=== PATIENT | female | born 1975 | race Caucasian/White ===

== ENCOUNTER → 2022-10-01 08:06 | Outpatient (CLI) | payer OTHER, SELFPAY ==
--- NOTE | ~2022-10-01 | MM_ITS ---
EXAMINATION: MM screening [facility] BI w kumar HISTORY: Screening mammogram TECHNIQUE: Craniocaudal and mediolateral oblique 3-D tomosynthesis images were obtained and synthetic 2-D images were generated. CAD analysis was submitted and interpreted. COMPARISON: No prior mammogram is available for comparison at this institution. BREAST PARENCHYMAL COMPOSITION: There are scattered areas of fibroglandular density. FINDINGS: Approximately 3.7 x 6 mm circumscribed opacity is noted at mid to posterior depth in the lo wer inner left breast (craniocaudal Tomosynthesis image 25/81). There is suggestion of a radiolucent hilus. This may be a benign appearing intramammary lymph node. Diagnostic left mammogram and left blessing ast ultrasound examination are recommended for further evaluation. Otherwise there is no evidence of suspicious mass, calcification, or architectural distortion to sugg est malignancy in either breast. IMPRESSION: 1. 3.7 x 6 mm circumscribed opacity at mid to posterior depth in the lower inner left breast 2. Diagnostic left mammogram and left breast ultrasound examination are recommended BI-RADS Category 0: Incomplete: Needs additional imaging evaluation. Reviewed, dictated and finalized at location A. ING INSPECTOR IMPRESSION: 1. 3.7 x 6 mm circumscribed opacity at mid to posterior depth in the lower inne r left breast 2. Diagnostic left mammogram and left breast ultrasound examination are recomme nded BI-RADS Category 0: Incomplete: Needs additional imaging evaluation.
== END ==
DX: Z12.31 Encounter for screening mammogram for malignant neoplasm of breast (principal); R92.8 Other abnormal and inconclusive findings on diagnostic imaging of breast
CPT/HCPCS: 77063; 77067

== ENCOUNTER 2022-10-31 14:20 | Outpatient (CLI) | payer OTHER, SELFPAY ==
--- NOTE | ~2022-10-31 | MMUS_ITS ---
EXAMINATION: MM diagnostic jane LT w kumar, US breast LT limited HISTORY: Follow-up left breast asymmetry TECHNIQUE: Additional 3-D tomosynthesis images of the left breast were performed and synthetic 2-D im ages were generated. CAD analysis was submitted and interpreted. High resolution Limited left breast ultrasound was performed. COMPARISON: 10/01/2022 and 09/17/2019 BREAST PARENCHYMAL COMPOSITION: Breast composed of scattered areas of fibroglandular density FINDINGS: MAMMOGRAPHIC FINDINGS: There are no suspicious masses, calcifications or architectural distortion in the left breast to sugg est malignancy. ULTRASOUND: Limited left breast ultrasound: At 10:00, 4 cm from the nipple there is an oval hypoechoic mass with low level internal echoes, parallel orientation, no significant posterior features. This mass measure s 5 x 3 x 2 mm, likely benign. At 12:00, 4 cm from the nipple there is an oval circumscribed parallel orientation hypoechoic mass without posterior features or internal vascularity measuring 9 x 6 x 2 m m, likely benign. IMPRESSION: 1. Probable benign left breast masses by ultrasound. 2. Recommend 6 month follow-up Limited left breast ultrasound BI-RADS category 3, probably benign findings. Reviewed, dictated and finalized at location B. ING MACHINE OPERATOR IMPRESSION: 1. Probable benign left breast masses by ultrasound. 2. Recommend 6 month follow-up Limited left breast ultrasound BI-RADS category 3, probably benign findings.
== END 2022-10-31 14:21 ==
LOC: MICIMG 14:22
DX: R92.8 Other abnormal and inconclusive findings on diagnostic imaging of breast (principal)
CPT/HCPCS: 76642; 77061; 77065; G0279

== ENCOUNTER 2024-06-05 16:56 | Outpatient (CLI) | payer OTHER, SELFPAY ==
--- NOTE | ~2024-06-05 | MM_ITS ---
EXAMINATION: MM screening jane BI w kumar HISTORY: Screening TECHNIQUE: Craniocaudal and mediolateral oblique 3-D tomosynthesis images were obtained and synthetic 2-D images were generated. CAD analysis was submitted and interpreted. COMPARISON: Comparison to multiple prior studies sequentially, with oldest reviewed study dated 08/21. BREAST PARENCHYMAL COMPOSITION: Not dense: There are scattered areas of fibroglandular density. FINDINGS: There is no evidence of suspicious mass, calcification, or architectural distortion to sugg est malignancy in either breast. There has been no suspicious interval change. IMPRESSION: 1. No mammographic evidence of malignancy. 2. Recommend routine screening mammography in one year. BI-RADS Category 1: Negative Reviewed, dictated and finalized at location B.
== END 2024-06-05 16:57 | disposition home or self-care (01) ==
LOC: ANHIMG 16:58
DX: Z12.31 Encounter for screening mammogram for malignant neoplasm of breast (principal)
CPT/HCPCS: 77063; 77067

== ENCOUNTER 2025-07-22 14:20 | Outpatient (CLI) | payer OTHER, SELFPAY ==
--- NOTE | ~2025-07-22 | MM_ITS ---
EXAMINATION: MM screening [facility] BI w kumar HISTORY: Screening TECHNIQUE: Craniocaudal and mediolateral oblique 3-D tomosynthesis images were obtained and synthetic 2-D images were generated. CAD analysis was submitted and interpreted. COMPARISON: Mammograms from 06/05/2024 and 10/01/2022 BREAST PARENCHYMAL COMPOSITION: There are scattered areas of fibroglandular density. FINDINGS: There is no evidence of suspicious mass, calcification, or architectural distortion in either breast to suggest malignancy. There has been no significant interval change. IMPRESSION: 1. No mammographic evidence of malignancy. Recommend routine screening mammography in one year. BI-RADS Category 1: Negative Reviewed, dictated and finalized at location Q. IMPRESSION: 1. No mammographic evidence of malignancy. Recommend routine screening mammogra phy in one year. BI-RADS Category 1: Negative
--- OUTSIDE RECORDS SUMMARY | 2025-07-22 14:34 | XMS_ITS | Clinical Summary ---
Author Organization [facility] Address [address] [place] [id number] Care Team Providers Care Jacquard Loom Carpet Weaver Name Role Phone Unavailable Primary Care Provider Unavailabl e Social History Tobacco Use Types Packs/Day Years Used Date Smoking Tobacco: Never Assessed Comments Unknown Sex and Gender Information Value Date Recorded Sex Assigned at Not on file Legal Sex Female 8:37 AM CDT Gender Identity Not on file Sexual Orientation Not on file Plan of Treatment Health Maintenance Due Date Last Done Comments Hepatitis C Virus (HCV) Screening 1975 TdaP Immunization 1975 Hepatitis B Immunization (1 of 3 - 19+ 3-dose series) 01/26/1995 Pap Smear 01/26/1997 Cervical Cancer Screening (CCS) 01/26/2006 HPV/Cotest 01/26/2006 Cologuard 01/26/2021 Colonoscopy 01/26/2021 Colorectal Cancer Screening 01/26/2021 Immunochemical Fecal Occult Blood 01/26/2021 Influenza Immunization (#1) 2025 09/0 06/2020, 08/22/2016, 08/06/2014, Additional history exists SARS-COV-2 Immunization ( season) 2025 11/30/2020, 11/09/2020 Respiratory Syncytial Virus (RSV) Immunization (Adult) (1 - 1-dose 75+ series) 01/26/2051 Pneumococcal Immunization Combined Aged Out 07/04/2014 No longer eligible based on patient's age to complete this topic Human Papillomavirus (HPV) Immunization Aged Out No longer eligible based on patient's age to complete this topic Meningococcal Immunization (ACWY) Aged Out No longer eligible based on patient's age to complete this topic Rotavirus Immunization Aged Out No lo nger eligible based on patient's age to complete this topic
--- OUTSIDE RECORDS SUMMARY | 2025-07-22 14:34 | XMS_ITS | Clinical Summary ---
Author Organization [facility] [address] [employer] Address [address] [place] [address] Care Team Providers Care Tinner Helper Name Role Phone Jyotsna Ho MD Primary Care Provider Jyotsna Ho MD Unavailable [phone] Allergies Active Allergy Reactions Criticality Noted Date Comments Promethazine Hallucinations Medium 01/28/2022 Metoclopramide Hallucinations Medium 01/31/2020 Scopolamine Hallucinations Medium 01/28/2022 Medications montelukast (Singulair) 10 mg tablet 10 mg daily Active adalimumab (adalimumab) 40 mg/0.8 mL pen injector kit Inject 40 mg under the skin every 2 (two) weeks Active cholecalciferol (VITAMIN D-3) 2000 unit tablet Take 2,000 Units by mouth daily Active levothyroxine (SYNTHROID) 125 mcg tablet Take 125 mcg by mouth 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 9 Active omeprazole (PriLOSEC) 20 mg capsule TAKE 1 CAPSULE DAILY 9 Active traMADoL (ULTRAM) 50 mg tablet TK 1 T PO BID PRN P 8 Active ondansetron (ZOFRAN) 4 mg tablet Take 1 tablet (4 mg total) by mouth every 4 (four) hours as needed for nausea or vomiting 20 tablet 2 Active Active Problems Problem Noted Date Diagnosed Date Globus sensation 01/31/2020 Sore throat 01/30/2020 Surgical History Surgery Date Site/Laterality Comments THYROID SURGERY Medical History Medical History Date Comments Allergic rhinitis Rheumatoid arthritis (HCC) GERD (gastroesophageal reflux disease) Family History Medical History Relation Name Comments Hypertension Brother Heart disease Maternal Grandfather Hypertension Mother Relation Name Status Comments Brother Maternal Grandfather Mother Social History Tobacco Use Types Packs/Day Years Used Date Smoking Tobacco: Never Smokeless Tobacco: Never Alcohol Use Standard Drinks/Week Comments Yes 0 (1 standard drink = 0.6 oz pur e alcohol) socially Personal Safety Answer Date Recorded Getting School Help Needed Not on file 01/20 Comments No Sex and Gender Information Value Date Recorded Sex Assigned at Not on file Legal Sex Female 8:33 PM BLIND ESCORT Gender Identity Not on file Sexual Orientation Not on file Obstetrics History Last Filed Vital Signs Vital Sign Reading Time Taken Comments Blood Pressure 131/77 01/28/2022 11:17 AM BLIND ESCORT Pulse 97 01/28/2022 11:17 AM BLIND ESCORT Temperature 36.8 C (98.3 F) 01/28/2022 8:42 AM BLIND ESCORT Respiratory Rate 16 01/28/2022 11:17 AM BLIND ESCORT Oxygen Saturation 98% 01/28/2022 11:17 AM BLIND ESCORT Inhaled Oxygen Concentration - - Weight 99.8 kg (220 lb) 01/28/2022 8:42 AM BLIND ESCORT Height 157.5 cm (5' 2) 01/28/2022 8:42 AM BLIND ESCORT Body Mass Index 40.24 01/28/2022 8:42 AM BLIND ESCORT Plan of Treatment Health Maintenance Due Date Last Done Comments Cervical Cancer Screening 1975 Colon Cancer Screening-Colonoscopy 1976 Depression Screening 1976 DTaP/Tdap/Td Vaccine (1 - Tdap) 01/26/1987 Hepatitis B Screening 01/26/1994 Regular Well Visit/Exam 18-64 01/26/1994 Zoster Vaccine (1 of 2) 01/26/1995 Pneumococcal vaccine <65 (2 of 2 - PCV) 07/04/2015 07/04/2014 Breast Cancer Screening-Mammogram 03/11/2016 015 Covid-19 Vaccine (4 - 2023-2 5 season) 2024 09/01/2021, 11/30/2020, 11/09/2020 Influenza Vaccine (#1) 2025 , 07/28/2020, 09/20/2019, Additional history exists Hepatitis C Screening Completed 02/15/2021 Procedures Procedure Name Priority Date/Time Associated Diagnosis Comments HEPATITIS PANEL, ACUTE Routine 02/15/2021 4:13 AM CDT DIAGNOSTIC MAMMOGRAM BILATERAL W RAN Routine 03/11/2015 2:10 PM CDT from Last 3 Months or Most Recently Relevant to Health Maintenance Results * Hepatitis panel, acute (02/15/2021 4:13 AM CDT) HepBsAg NONREACT NONREACTIVE [facility] Comment: Siemens CentaurXP using TAMMY (chemiluminescent immunoassay) technology. NONREACTIVE: IgM antibodies to Hepatitis B Surface antigen not detected. REACTIVE: IgM antibodies to Hepatitis B Surface antigen detected. Reactive results will be confirmed by neutralization testing. HBsAb qn <3.10 mIU/mL [facility] Comment: Siemens CentaurXP using TAMMY (chemiluminescent immunoassay) technology. 9.99 IU/L or less.....NONREACTIVE: IgM antibodies to Hepatitis B Surface antibody are not detected. 10.00 IU/L or greater..REACTIVE: IgM antibodies to Hepatitis B Surface antibody are detected. Hep B core IgM NONREACT NONREACTIVE [facility] Comment: Siemens CentaurXP using TAMMY (chemiluminescent immunoassay) technology. NONREACTIVE: IgM antibodies to Hepatitis B Core antigen not detected. EQUIVOCAL: IgM antibodies to Hepatitis B Core antigen may or may not be present. Obtain a new specimen and retest. REACTIVE: IgM antibodies to Hepatitis B Core antigen detected. Hep A IgM NONREACT NONREACTIVE [facility] Comment: Siemens CentaurXP using TAMMY (chemiluminescent immunoassay) technology. NONREACTIVE: IgM antibodies to Hepatitis A not detected. This does not exclude possibility of exposure to Hepatitis A or early acute infection. EQUIVOCAL:IgM antibodies to Hepatitis A may or may not be present. Suggest recollection and retest. REACTIVE: Antibodies to Hepatitis A detected. Hep C Ab NONREACT NONREACTIVE [facility] Comment: Siemens CentaurXP using TAMMY (chemiluminescent immunoassay) technology. NONREACTIVE: Antibodies to Hepatitis C not detected. This does not exclude early acute Hepatitis C infection, possibility of exposure to Hepatitis C, antibodies below detection limit, or to lack of antibody reactivity to the antigen used in this assay. EQUIVOCAL: Antibodies to Hepatitis C may or may not be present. Sample to be confirmed by real-time PCR method. REACTIVE: Antibodies to Hepatitis C detected.Sample to be confirmed by real-time PCR method. 02/15/2021 4:13 AM CDT 02/15/2021 4:18 AM CDT Narrative [facility] - 02/15/2021 11:31 AM CDT NO SERUM IN LAB - MUST BE DRAWN FOR TESTING Resulting Agency Comment IN us Mir Post MD LAB MICROBIOLOGY - GENERAL ORDERABLES Final Result [facility] [address] [place] [address], [facility] [phone] * Diagnostic Mammogram Bilateral W Ran (03/11/2015 2:10 PM CDT) Anatomical Region Laterality Modality Breast Bilateral Mammography 03/11/2015 2:10 PM CDT Impressions 03/11/2015 3:40 PM CDT BIRADS 1: NEGATIVE No evidence of malignancy in either breast. No mammographic or sonographic abnormality at the sites of focal pain in the right breast. Base any further evaluation on clinical examination. Routine annual screening mammography is recommended in 1 year. Electronically signed by: Dr. Atul Nathan nh/:03/11/2015 15:37:06 President And Cmo: Chyna Marshall RT (R)(M), [place] letter sent: MG & US Done-Normal Reading location: BI-RADS: 1 Negative [EOD] Narrative 03/11/2015 3:40 PM CDT - ERIKA BILAT DIAGNOSTIC 3D W/CAD BILATERAL DIGITAL DIAGNOSTIC MAMMOGRAM 3D/2D WITH CAD WITH MEDIOLATERAL OBLIQUE CRANIOCAUDAL: 03/11/2015 The study was acquired using full field digital technology and interpreted from soft copy. Current study was also evaluated with ICAD version 7.2. CLINICAL: 40-year-old woman presents for evaluation of 3 focal areas of pain in the right breast and annual mammography of the left breast. COMPARISONS: Comparison is made to exam dated: 08/23/2012 mammogram - [facility]. BREAST TISSUE: The tissue of both breasts is heterogeneously dense, which may obscure small masses. MAMMOGRAPHIC FINDINGS: Three radiopaque BBs were placed over the sites of focal pain in the right breast. There are no mammographic abnormalities at any of these sites. Targeted ultrasound will be performed. No significant masses, calcifications, or other findings are seen in either breast. There has been no significant interval change. ULTRASOUND FINDINGS: Targeted right breast ultrasound at the sites of focal pain at 10 o'clock 5 cm from the nipple, 11 o'clock 8 cm from nipple and 5 o'clock 3 cm from the nipple demonstrated normal tissue. No suspicious abnormality was noted. Procedure Note Provider, MD Marnie - 04/07/2021 - ERIKA BILAT DIAGNOSTIC 3D W/CAD BILATERAL DIGITAL DIAGNOSTIC MAMMOGRAM 3D/2D WITH CAD WITH MEDIOLATERALOBLIQUE CRANIOCAUDAL: 03/11/2015 The study was acquired using full field digital technology and interpretedfrom soft copy. Current study was also evaluated with [employer] version 7.2. CLINICAL: 40-year-old woman presents for evaluation of 3 focal areas ofpain in the right breast and annual mammography of the left breast. COMPARISONS: Comparison is made to exam dated: 08/23/2012 mammogram -[facility]. BREAST TISSUE: The tissue of both breasts is heterogeneously dense, whichmay obscure small masses. MAMMOGRAPHIC FINDINGS: Three radiopaque BBs were placed over the sites offocal pain in the right breast. There are no mammographic abnormalities at anyof these sites. Targeted ultrasound will be performed. No significant masses, calcifications, or other findings are seen ineither breast. There has been no significant interval change. ULTRASOUND FINDINGS: Targeted right breast ultrasound at the sites offocal pain at 10 o'clock 5 cm from the nipple, 11 o'clock 8 cm from nipple and 5 o'clock 3 cm from the nipple demonstrated normal tissue. No suspicious abnormality was noted. IMPRESSION: BIRADS 1: NEGATIVE No evidence of malignancy in either breast. No mammographic orsonographic abnormality at the sites of focal pain in the right breast. Base anyfurther evaluation on clinical examination. Routine annual screening mammography is recommended in 1 year. Electronically signed by: Dr. Atul Nathan nh/:03/11/2015 15:37:06 President And Cmo: Chyna Marshall RT (R)(M), [place] letter sent: MG & US Done-Normal Reading location: BI-RADS: 1 Negative [EOD] us Kahlil Damon MD IMG MAMMO PROCEDURES Final Result from Last 3 Months or Most Recently Relevant to Health Maintenance Insurance [employer] [facility] [employer] Address: [place] [address] [employer] [facility] [employer] Address: [address] [address] [place] [address] [facility] [employer] [facility] [employer] Address[address] [place] [id number] [facility] [employer] [facility] [employer] Address: [address] [address] Care Teams Tinner Helper Relationship Specialty Start Date End Date Jyotsna Ho MD [address] [place] [address] PCP - General 02/14/21 Jyotsna Ho MD [address] [place] [address] Family Practice 02/14/21
== END 2025-07-22 14:21 | disposition home or self-care (01) ==
LOC: CHSIMG 14:22
DX: Z12.31 Encounter for screening mammogram for malignant neoplasm of breast (principal)
CPT/HCPCS: 77063; 77067